=== PATIENT | female | born 1950 | race Caucasian/White ===

== ENCOUNTER 2018-11-15 09:29 | Outpatient (CLI) | payer MEDICARE, OTHER ==
--- NOTE | 2018-11-15 10:20 | MMO ---
Bilateral MAMMO Bilat Screen [facility]. CLINICAL HISTORY: Patient is 68 years old and is seen for screening. The patient has no family history of breast cancer. The patient has no personal history of cancer. VIEWS: The views performed were: bilateral craniocaudal with tomosynthesis and bilateral mediolateral oblique with tomosynthesis. FILMS COMPARED: The present examination has been compared to prior imaging studies performed at [facility] on 07/08/2012, 08/10/2013, 10/08/2014, 03/06/2016 and 04/08/2017. MAMMOGRAM FINDINGS: There are scattered fibroglandular densities. There is a stable asymmetry seen in the outer region of the left breast. There are no suspicious masses, suspicious calcifications, or new areas of architectural distortion. IMPRESSION: THERE IS NO MAMMOGRAPHIC EVIDENCE OF MALIGNANCY. A ROUTINE FOLLOW-UP MAMMOGRAM IN 1 YEAR IS RECOMMENDED. THE RESULTS OF THIS EXAM WERE SENT TO THE PATIENT. ACR BI-RADS Category 2 - Benign finding MAMMOGRAPHY NOTE: 1. A negative mammogram report should not delay a biopsy if a dominant of clinically suspicious mass is present. 2. Approximately 10% to 15% of breast cancers are not detected by mammography. 3. Adenosis and dense breasts may obscure an underlying neoplasm.
--- NOTE | 2018-11-15 10:47 | BD ---
DEXA BONE DENSITY STUDY: HISTORY: Postmenopausal. FINDINGS: Lumbar Spine: BMD (g/cm2) L1 0.976 T-Score: -0.1 L2 1.000 T-Score: -0.3 L3 1.002 T-Score: -0.7 L4 1.164 T-Score: +0.9 L1-L4 1.042 T-Score: +0.0 Femoral Neck: 0.747 T-Score: -0.9 Total Femur: 0.947 T-Score: +0.0 Impression: Normal bone mineral density of the lumbar spine and left femoral neck. POS: [facility]
== END 2018-11-15 09:30 | disposition home or self-care (01) ==
LOC: BICMAMMO 09:29
PROVIDERS: ATTEND Family Medicine
DX: Z12.31 Encounter for screening mammogram for malignant neoplasm of breast (principal); Z78.0 Asymptomatic menopausal state
CPT/HCPCS: 77063; 77067; 77080

== ENCOUNTER 2020-06-04 13:42 | Outpatient (CLI) | payer MEDICARE, OTHER ==
--- NOTE | 2020-06-04 14:20 | MMO ---
Bilateral MAMMO Bilat Screen [facility]. CLINICAL HISTORY: Patient is 69 years old and is seen for screening. The patient has no family history of breast cancer. The patient has no personal history of cancer. VIEWS: The views performed were: bilateral craniocaudal with tomosynthesis and bilateral mediolateral oblique with tomosynthesis. FILMS COMPARED: The present examination has been compared to prior imaging studies performed at [facility] on 10/08/2014, 03/06/2016, 04/08/2017 and 11/15/2018. This study has been interpreted with the assistance of computer-aided detection. MAMMOGRAM FINDINGS: There are scattered fibroglandular densities. There are no suspicious masses, suspicious calcifications, or new areas of architectural distortion. IMPRESSION: THERE IS NO MAMMOGRAPHIC EVIDENCE OF MALIGNANCY. A ROUTINE FOLLOW-UP MAMMOGRAM IN 1 YEAR IS RECOMMENDED. THE RESULTS OF THIS EXAM WERE SENT TO THE PATIENT. ACR BI-RADS Category 1 - Negative MAMMOGRAPHY NOTE: 1. A negative mammogram report should not delay a biopsy if a dominant of clinically suspicious mass is present. 2. Approximately 10% to 15% of breast cancers are not detected by mammography. 3. Adenosis and dense breasts may obscure an underlying neoplasm. Reported by: MAU RUBIO MD Electonically Signed: [id number]
== END 2020-06-04 13:43 | disposition home or self-care (01) ==
LOC: BICMAMMO 13:42
PROVIDERS: ATTEND Family Medicine
DX: Z12.31 Encounter for screening mammogram for malignant neoplasm of breast (principal)
CPT/HCPCS: 77063; 77067

== ENCOUNTER 2023-05-11 10:06 | Outpatient (CLI) | payer MEDICARE, OTHER | END 2023-05-11 10:07 | disposition home or self-care (01) | LOC: BICMAMMO 10:06 | PROVIDERS: ATTEND Family Medicine | DX: Z12.31 Encounter for screening mammogram for malignant neoplasm of breast (principal); Z13.820 Encounter for screening for osteoporosis; M85.852 Other specified disorders of bone density and structure, left thigh | CPT/HCPCS: 77063; 77067; 77080 ==

== ENCOUNTER 2023-05-18 13:02 | Outpatient (CLI) | payer MEDICARE, OTHER ==
[2023-05-18 15:20] LABS: #Basophils 0.1 10x3/uL (0.0-0.2); #Eosinphils 0.2 10x3/uL (0.0-0.5); #Monocytes 0.9 10x3/uL (0.0-1.1); #Neutrophils 3.9 10x3/uL (1.5-8.4); %Basophils 1.1 % (0.0-2.0); %Eosinophils 2.4 % (0.0-6.0); %Lymphocytes 32.8 % (18.0-47.0); %Monocytes 11.6 % (0.0-10.0); Hematocrit 41.2 % (34.9-44.5); Hemoglobin 13.6 g/dL (12.0-15.5); Mean Corpuscular Hemoglobin 28.1 pg (27.0-33.0); Mean Corpuscular Volume 85.1 fl (81.6-98.3); Mean Platelet Volume 10.9 fl (7.4-10.4); Platelet Count 274 10x3/uL (150-450); RBC Distribution Width 13.3 % (11.5-14.5); Red Blood Cell (RBC) Count 4.84 10x6/uL (3.90-5.03); White Blood Cell (WBC) Count 7.5 10x3/uL (3.5-10.5)
[2023-05-18 15:28] LABS: INR-International Normal Ratio 0.9; Prothrombin Time 10.2 sec (9.5-12.1)
[2023-05-18 15:40] LABS: Anion Gap 14 mmol/L (10-20); BUN (Urea Nitrogen) 13 mg/dL (9.8-20.1); Calc. Creatinine Clearance 0 mL/min (70-130); Calcium 9.6 mg/dL (7.8-10.44); Carbon Dioxide 28 mmol/L (23-31); Chloride 102 mmol/L (98-107); Estimated GFR 76; Glucose 90 mg/dL (83-110); Potassium 3.5 mmol/L (3.5-5.1); Sodium 140 mmol/L (136-145)
== END 2023-05-18 13:03 | disposition home or self-care (01) ==
LOC: LABBT 13:02
PROVIDERS: ATTEND Orthopaedic Surgery
DX: Z01.818 Encounter for other preprocedural examination (principal); S46.011A Strain of muscle(s) and tendon(s) of the rotator cuff of right shoulder, initial encounter
CPT/HCPCS: 80048; 85025; 85610; 93005; 93010

== ENCOUNTER 2023-05-20 06:20 | Observation (INO) | payer MEDICARE, OTHER ==
[2023-05-18 13:49] VITALS: BMI 31.1
[2023-05-20] MEDS ORDERED: Vancomycin (BATCH) 1.5 GM/300 ML BAG ONE (08:08)
[2023-05-20] MEDS ORDERED: Sodium Chloride 0.9% 100 ML ONE ×2 (08:08→09:18)
[2023-05-20] MEDS ORDERED: Tranexamic Acid 1,000 MG/10 ML VIAL ONE (08:08)
[2023-05-20] MEDS ORDERED: Midazolam HCl 2 mg/2 ml Vial ONE (08:29)
[2023-05-20] MEDS ORDERED: fentaNYL 50 mcg/mL 1 mL Vial ONE ×6 (08:29→12:06)
[2023-05-20] MEDS ORDERED: Bupivacaine PF 0.5% 30 ML VIAL ONE (08:30)
[2023-05-20] MEDS ORDERED: ePHEDrine Sulfate 50 MG/10 ML VIAL ONE (09:00)
[2023-05-20] MEDS ORDERED: Rocuronium Bromide 10 MG/ML (10ML VIAL) ONE (09:00)
[2023-05-20] MEDS ORDERED: Bupivacaine HCl 0.5%/Epinephrine 1:200,000/PF 30 ml Vial ONE (09:00)
[2023-05-20] MEDS ORDERED: PROPOFOL 200 MG/20 ML VIAL ONE (09:00)
[2023-05-20] MEDS ORDERED: Lidocaine 1% PF 5 ML VIAL ONE (09:00)
[2023-05-20] MEDS ORDERED: Dexamethasone 20 MG/5 ML VIAL ONE (09:00)
[2023-05-20] MEDS ORDERED: Ondansetron PF 4 MG/2 ML Vial ONE ×2 (09:00→11:44)
[2023-05-20] MEDS ORDERED: CEFAZOLIN 2 GM VIAL ONE (09:18)
[2023-05-20] MEDS ORDERED: fentaNYL 50 mcg/mL 1 mL Vial SLOW IVP PRN (09:31)
[2023-05-20] MEDS ORDERED: Ondansetron PF 4 MG/2 ML Vial IVP PRN ×2 (09:45→11:15)
[2023-05-20] MEDS ORDERED: Zolpidem Tartrate 5 MG TAB PO PRN ×2 (09:45→11:15)
[2023-05-20] MEDS ORDERED: HYDROcodone/Acetaminophen 10/325 mg Tablet PO PRN ×3 (09:45→11:15)
[2023-05-20] MEDS ORDERED: traMADol HCl 50 MG TAB PO PRN ×4 (09:45→11:15)
[2023-05-20] MEDS ORDERED: Promethazine HCl 25 MG/ML VIAL IM PRN (09:45)
[2023-05-20] MEDS ORDERED: Ropivacaine 0.2% 550 ML 550 ML NERVE BLCK SCH (09:45)
[2023-05-20] MEDS ORDERED: SUGAMMADEX SODIUM 200 MG/2 ML VIAL ONE (10:52)
[2023-05-20] MEDS ORDERED: Ondansetron HCl/PF 4 MG/2 ML Vial IVP PRN (11:02)
[2023-05-20] MEDS ORDERED: Ketorolac Tromethamine 30 MG/ML VIAL IVP PRN (11:02)
[2023-05-20] MEDS ORDERED: Acetaminophen 325 MG TAB PO PRN (11:15)
[2023-05-20] MEDS ORDERED: Famotidine 20 MG TAB PO SCH (11:15)
[2023-05-20] MEDS ORDERED: Bisacodyl 10 MG SUPP PR PRN (11:15)
[2023-05-20] MEDS ORDERED: diphenhydrAMINE 50 MG CAP PO PRN (11:15)
[2023-05-20] MEDS ORDERED: Methocarbamol 500 MG TAB PO PRN (11:15)
[2023-05-20] MEDS ORDERED: Milk Of Magnesia 30 ML UDCUP PO PRN (11:15)
[2023-05-20] MEDS ORDERED: Methocarbamol 1 GM/10 ML VIAL SLOW IVP PRN (11:15)
[2023-05-20] MEDS ORDERED: Ondansetron ODT 4 MG TAB PO PRN (11:15)
[2023-05-20] MEDS ORDERED: Ketorolac Tromethamine 30 MG/ML VIAL ONE (12:06)
[2023-05-20] MEDS: Ketorolac Tromethamine 30 MG/ML VIAL IVP SCH ×2 (17:52→18:07)
[2023-05-20] MEDS: CEFAZOLIN 2 GM in Sodium Chloride 0.9% 100 ML IVPB SCH ×2 (17:52→23:59)
[2023-05-20] MEDS: Sodium Chloride 0.9% 1,000 ML IV SCH (18:08)
[2023-05-20] MEDS: Famotidine 20 MG TAB PO SCH (20:37)
[2023-05-21] MEDS: Sodium Chloride 0.9% 1,000 ML IV SCH (03:52)
[2023-05-21] MEDS: Ketorolac Tromethamine 30 MG/ML VIAL IVP SCH ×2 (05:17)
[2023-05-21 08:06] VITALS: BP 113/71; TEMP 97.7
[2023-05-21] MEDS: Famotidine 20 MG TAB PO SCH (08:36)
== END 2023-05-21 09:50 | disposition home or self-care (01) ==
LOC: SDC 06:20 → SJJU 13:17
PROVIDERS: ADMIT Orthopaedic Surgery; ATTEND Orthopaedic Surgery
PROC: 0RWJ0JZ Revision of Synthetic Substitute in Right Shoulder Joint, Open Approach (ICD-10-PCS; principal; 2023-05-20)
PROC: 0LS30ZZ Reposition Right Upper Arm Tendon, Open Approach (ICD-10-PCS; 2023-05-20)
DX: S46.011A Strain of muscle(s) and tendon(s) of the rotator cuff of right shoulder, initial encounter (principal); M75.21 Bicipital tendinitis, right shoulder; I10 Essential (primary) hypertension; Z79.899 Other long term (current) drug therapy
CPT/HCPCS: 23430; 23472; 97116 ×2; 97530; 97535; A4306; C1713 ×6; C1776 ×4; J3010; J3370; J1100; J1885; J2250; J2405; J2704; J2795; J3490; J7050; S0020

== ENCOUNTER 2024-07-21 09:33 | Outpatient (CLI) | payer MEDICARE, OTHER | END 2024-07-21 09:34 | disposition home or self-care (01) | LOC: BICMAMMO 09:33 | PROVIDERS: ATTEND Family Medicine | DX: Z12.31 Encounter for screening mammogram for malignant neoplasm of breast (principal); M81.0 Age-related osteoporosis without current pathological fracture; M85.852 Other specified disorders of bone density and structure, left thigh | CPT/HCPCS: 77063; 77067; 77080 ==